=== PATIENT | male | born 1985 | race Caucasian/White ===

== ENCOUNTER 2016-04-27 07:25 | Emergency (ER) | payer BC ==
[~2016-04-27 07:25] MED LIST: IMITREX PO; TRAMADOL HCL50 M2 PO
[2016-04-27 07:36] LABS: INFLUENZA A NEG (NEG); INFLUENZA B NEG (NEG)
== END 2016-04-27 08:07 | disposition home or self-care (01) ==
LOC: SED 07:25
PROVIDERS: Emergency Medicine
DX: J20.9 Acute bronchitis, unspecified (principal); J01.00 Acute maxillary sinusitis, unspecified; J01.20 Acute ethmoidal sinusitis, unspecified; F17.210 Nicotine dependence, cigarettes, uncomplicated; G43.909 Migraine, unspecified, not intractable, without status migrainosus
CPT/HCPCS: 87651; 87804; 99283